=== PATIENT | male | born 1950 | race Caucasian/White ===

== ENCOUNTER 2016-04-08 00:37 | Emergency (ER) | payer OTHER ==
[~2016-04-08] VITALS: Ht 167.6 cm; Wt 88.6 kg
[~2016-04-08 00:37] MED LIST: ADALAT CC60 MG PO; ASPIRIN 81M81 MG/TA2 PO; ASPIRIN E.C. 8181 MG PO; CALCIUM CITRATE1 TA1 PO; CELEXA 20MG20 MG/TAB PO; CLEOCIN HCL300 MG PO; COLACE 100100 MG/CAP PO; COREG12.5 MG PO; COZAAR100 MG PO; FISH OIL 1000MG1 CAP PO; FLOVENT DI50 MCG/Act IH; FOSAMAX 70MG TA70 MG PO; GLUCOPHAGE; GLUCOPHAGE1000 MG PO; HCTZ 25MG TAB25 MG PO; LANTUS100 U/ML SC; LIPITOR 80MG80 MG PO; LISINOPRIL; MELAT3MGTAB PO; PEPCID 20MG TAB20 MG PO; PRILOSEC 20MG20 MG PO; PROAIR HFA0.09 MG/AC IH; PROCARDIA XL 6060 MG PO; PROTONIX 40MG T40 MG PO; PROTONIX20 MG PO; REMERON SOLTAB15 MG PO; TRAMADOL; ULTRAM 50MG TAB50 MG PO; VITAMIN D31000 I1 PO; ZANTAC 150150 MG PO; ZOCOR 80MG80 MG PO
[2016-04-08 00:38] VITALS: TEMP 97.2
[2016-04-08 01:05] LABS: HEMATOCRIT 41.2 % (42.0-52.0); MEAN CELL VOLUME 105 fl (80.0-100.0); MEAN CORPUSCULAR HEMOGLOBIN 36 pg (27.0-31.0); MEAN CORPUSCULAR HGB CONC 34 g/dl (33.0-37.0); MEAN PLATELET VOLUME 10.2 fl (7.4-10.4); PLATELET COUNT 458 K/mm3 (130-400); RED BLOOD COUNT 3.92 M/mm3 (4.20-5.60); REDCELL DISTRIBUTION WIDTH-CV 15.4 % (11.5-14.5); WHITE BLOOD COUNT 11.5 K/mm3 (4.8-10.8)
[2016-04-08 01:06] LABS: ADD PATHOLOGY DIFF REVIEW NO
[2016-04-08 01:11] LABS: PH 6 (5-8); SQUAMOUS EPITHELIAL None Seen /hpf; URINE APPEARANCE Clear; URINE BACTERIA None Seen /hpf; URINE BILIRUBIN Negative (NEGATIVE); URINE BLOOD Negative (NEGATIVE); URINE COLOR Straw; URINE GLUCOSE Negative (NEGATIVE); URINE KETONE Negative (NEGATIVE); URINE RBC None Seen /hpf; URINE UROBILINOGEN Negative (NEGATIVE); URINE WBC 0-2 /hpf
[2016-04-08 01:11] LABS: PROTHROMBIN TIME 11.6 SECONDS (9.7-12.8)
[2016-04-08 01:13] LABS: PARTIAL THROMBOPLASTIN TIME 33.2 SECONDS (26.0-37.0)
[2016-04-08 01:18] LABS: ADJUSTED CALCIUM 9.9 mg/dL (8.4-10.2); ALBUMIN 4.2 gm/dL (3.5-5.0); BILIRUBIN,TOTAL 0.6 mg/dL (0.0-1.0); CALCIUM 10.1 mg/dL (8.4-10.2); CREATININE, serum 0.81 mg/dL (0.66-1.25); POTASSIUM 4.2 mmol/L (3.4-5.0); TOTAL PROTEIN 7.7 gm/dL (6.4-8.2)
[2016-04-08 01:19] LABS: BAND 7 % (0-10); EOSINOPHIL 4 % (0-4); NEUTROPHILS 48 % (42.0-75.2); TOTAL CELLS COUNTED 100
[2016-04-08] MEDS ORDERED: COZAAR100 MG PO (02:08)
[2016-04-08] MEDS ORDERED: CARAFATE 1GM1 G PO (02:09)
[2016-04-08] MEDS ORDERED: NORCO 325 MG-51 TAB PO (02:37)
[2016-04-08 04:43] VITALS: BP 152/92; PULSE 84
== END 2016-04-08 04:45 | disposition home or self-care (01) ==
LOC: COL.ER 00:37
PROVIDERS: Emergency Medicine
DX: S70.02XA Contusion of left hip, initial encounter (principal); W01.198A Fall on same level from slipping, tripping and stumbling with subsequent striking against other object, initial encounter; Y92.009 Unspecified place in unspecified non-institutional (private) residence as the place of occurrence of the external cause; Z96.642 Presence of left artificial hip joint; F10.20 Alcohol dependence, uncomplicated; Y90.6 Blood alcohol level of 120-199 mg/100 ml; I71.4 Abdominal aortic aneurysm, without rupture; J44.9 Chronic obstructive pulmonary disease, unspecified; I25.10 Atherosclerotic heart disease of native coronary artery without angina pectoris; F17.210 Nicotine dependence, cigarettes, uncomplicated
CPT/HCPCS: J1170; J3010; J7030; Q9967

== ENCOUNTER 2016-04-16 23:51 | Emergency (ER) | payer OTHER ==
[~2016-04-16 23:51] MED LIST changes: +CARAFATE 1GM1 G PO; +NORCO 325 MG-51 TAB PO
[2016-04-17 00:06] LABS: HEMATOCRIT 40.1 % (42.0-52.0); HEMOGLOBIN 13.5 g/dl (13.5-18.0); MEAN CELL VOLUME 106 fl (80.0-100.0); MEAN CORPUSCULAR HEMOGLOBIN 36 pg (27.0-31.0); MEAN CORPUSCULAR HGB CONC 34 g/dl (33.0-37.0); MEAN PLATELET VOLUME 10.3 fl (7.4-10.4); PLATELET COUNT 369 K/mm3 (130-400); RED BLOOD COUNT 3.78 M/mm3 (4.20-5.60); REDCELL DISTRIBUTION WIDTH-CV 15.7 % (11.5-14.5); WHITE BLOOD COUNT 12.9 K/mm3 (4.8-10.8)
[2016-04-17 00:08] VITALS: TEMP 98.7
[2016-04-17 00:14] LABS: ADD PATHOLOGY DIFF REVIEW NO
[2016-04-17 00:16] LABS: PROTHROMBIN TIME 11.1 SECONDS (9.7-12.8)
[2016-04-17 00:17] LABS: ADJUSTED CALCIUM 9.7 mg/dL (8.4-10.2); ALANINE AMINOTRANSFERASE 36 U/L (21-72); ALKALINE PHOSPHATASE 94 U/L (50-136); ANION GAP 16 mmol/L (7-16); BILIRUBIN,TOTAL 0.5 mg/dL (0.0-1.0); BLOOD UREA NITROGEN 16 mg/dL (9-20); CALCIUM 9.7 mg/dL (8.4-10.2); CARBON DIOXIDE 22 mmol/L (22-30); CHLORIDE 105 mmol/L (98-107); CREATININE, serum 0.88 mg/dL (0.66-1.25); GLUCOSE 207 mg/dL (74-106); POTASSIUM 4.1 mmol/L (3.4-5.0); SODIUM 143 mmol/L (137-145); TOTAL PROTEIN 7.4 gm/dL (6.4-8.2)
[2016-04-17 00:19] LABS: PARTIAL THROMBOPLASTIN TIME 32.1 SECONDS (26.0-37.0)
[2016-04-17 00:31] LABS: TROPONIN-I < 0.012 ng/mL (0.000-0.034)
[2016-04-17 00:40] LABS: BAND 16 % (0-10); EOSINOPHIL 6 % (0-4); NEUTROPHILS 34 % (42.0-75.2); TOTAL CELLS COUNTED 100
[2016-04-17 00:46] VITALS: BP 142/83; PULSE 83
== END 2016-04-17 00:48 | disposition home or self-care (01) ==
LOC: COL.ER 23:51
PROVIDERS: Physician Assistant
DX: F10.220 Alcohol dependence with intoxication, uncomplicated (principal); Y90.7 Blood alcohol level of 200-239 mg/100 ml; I45.10 Unspecified right bundle-branch block; R07.9 Chest pain, unspecified; E11.9 Type 2 diabetes mellitus without complications; Z79.84 Long term (current) use of oral hypoglycemic drugs; I10 Essential (primary) hypertension; I25.10 Atherosclerotic heart disease of native coronary artery without angina pectoris; I71.4 Abdominal aortic aneurysm, without rupture; R11.10 Vomiting, unspecified; F17.210 Nicotine dependence, cigarettes, uncomplicated
CPT/HCPCS: J2405; J7030